=== PATIENT | female | born 1985 | race Caucasian/White ===

== ENCOUNTER 2018-07-19 09:29 | Inpatient (IN) | payer MEDICAID ==
[2018-07-19] VITALS (8 sets, daily range): BP systolic 103–143; BP diastolic 57–90; Ht 157.5 cm; Wt 83.9 kg
[~2018-07-19] VITALS: Ht 157.5 cm; Wt 83.9 kg
--- NOTE | ~2018-07-19 | DS ---
PATIENT:SUZIE PLATT :87 MEDICAL RECORD: [id number] DISCHARGE SUMMARY ADMISSION DATE: 07/19/18 DISCHARGE DATE: 07/21/18 ADMISSION DATE: 07/19/2018 DATE OF ADMISSION: 07/21/2018 ADMISSION DIAGNOSES: 1. at term. 2. History of prior section. 3. Unwanted fertility. DISCHARGE DIAGNOSES: 1. Mother delivered at term. 2. History of section. 3. Unwanted fertility. PROCEDURES PERFORMED: 1. Repeat low transverse section. 2. Bilateral tubal ligation using a [place] technique. ATTENDING: Dr. Valerio HISTORY OF PRESENT ILLNESS: See the H&P in the chart. SUMMARY OF HOSPITALIZATION: The patient was admitted to the hospital and underwent a repeat section with tubal ligation without incident. At the time of discharge, she was tolerating regular diet and has adequate pain control on Percocet and Toradol. DISCHARGE MEDICATIONS: Will include 5 mg Percocet 1-2 every 4-6 hours, dispensing 25. Motrin will be 800 mg, will also be prescribed to be taken every 8 hours for 2 days, then every 8 hours p.r.n. for [id number] pain. Standard discharge precautions have been reviewed with the patient. precautions have been reviewed and she will follow up in 2 weeks at [facility]. TRANSINT:[id number] Voice Confirmation ID: [id number] DOCUMENT ID: [id number] JORDAN VALERIO MD at 0830 CC: [id number] DICTATION DATE: 07/21/18 0650 PEANUT FARMER: 07/21/182055 DIS IN 07/21/18 [id number] [place] [address]
--- NOTE | ~2018-07-19 | OP ---
PATIENT NAME: SUZIE PLATT MEDICAL RECORD: [id number] :87 LOCATION:[facility].[id number] ADMISSION DATE:07/19/18 SURGEON: JORDAN VALERIO MD DATE OF OPERATION: 07/19/2018 PREOPERATIVE DIAGNOSES: 1. at term. 2. History of prior section. 3. Unwanted fertility. POSTOPERATIVE DIAGNOSES: 1. Mother delivered at term. 2. History of prior section. 3. Unwanted fertility. PROCEDURES: 1. Repeat low transverse section. 2. tubal ligation using a [place] technique. SURGEON: Jordan Valerio MD ANESTHESIOLOGIST: Dr. Leblanc. ANESTHETIC: Spinal. FINDINGS: Viable male infant, vertex presentation, Apgars 9 and 9, weight 7 pounds 6 ounces. Uterus, tubes, and ovaries are unremarkable. Minimal adhesive disease. SPECIMEN REMOVED: 1. Placenta. 2. Tubes. DISPOSITION: 1. Discarded. 2. Pathology. ESTIMATED BLOOD LOSS: 750 cc. FLUIDS: 1500 cc of lactated Ringer's. URINE OUTPUT: 350 cc of clear urine. COMPLICATIONS: None. DRAINS: Driscoll to gravity. INDICATIONS: The patient is a 33-year-old G4, para 3 with prior sections. The patient has unwanted fertility and has consented for repeat . Risks, benefits as well as possible issues with tubal have been discussed at length. Alternatives to tubal ligation have been discussed. DESCRIPTION OF PROCEDURE: After informed consent was assured, the patient was taken to the operating room where anesthetic is obtained. The patient is now placed in a leftward lateral tilt and prepped and draped. Incision was made at OPERATIVE REPORT [id number] SUZIE PLATT the old scar, carried down to the underlying layer of the fascia, which was opened in the midline and extended laterally. Rectus bellies were dissected free, superiorly and inferiorly. Peritoneum is identified and entered sharply. The peritoneal opening was extended with visualization of the bladder. DeLee all-purpose retractor was inserted and bladder flap developed. Bladder blade was now reinserted and low transverse hysterotomy was performed and with extension of the incision by bandage scissors. 's was delivered onto the abdomen atraumatically. Noted was a nuchal cord times 1, easily reduced. Infant has cords doubly clamped and cut and the infant was passed to the attendant from the nursery. Cord blood sample was now obtained and the placenta delivered via Crede maneuver. Uterus was not exteriorized, cleared of all clot and debris and closed in a running locked fashion with chromic. A small extension on the left side, it is now repaired with chromic stitch. After the chromic stitch is secured, the uterus is deflected forward and right tube identified and elevated. The window was developed in the antimesenteric portion and through this window 2 ligatures were placed and secured proximally and distally and the intervening segment of tube excised with Metzenbaum scissors. This was repeated on the contralateral side. Again, a segment of tube removed. All ostia sites were inspected and cauterized for hemostasis. The uterus was returned to the abdomen and the stumps inspected and found to be hemostatic. Inspection of the lower hysterotomy site reveals adequate hemostasis. The pelvis is now floated in sterile water and visualized without bleeding noted. The irrigant was removed and the peritoneum was reapproximated in the midline with a loose chromic stitch. Fascia was now closed with looped PDS. Subcutaneous tissues were irrigated, bleeding vessels cauterized, and the skin reapproximated with a subcuticular stitch. Sterile dressing is applied. Sponge, lap, and needle counts correct times 2. TRANSINT:[id number] Voice Confirmation ID: [id number] DOCUMENT ID: [id number] JORDAN VALERIO MD at 0649 CC: [id number] DICTATION DATE: 07/19/18 1234 ECONOMICS FACULTY MEMBER: 07/19/18 1353 ADM IN [facility] [address] [place] [address]
[2018-07-19 10:21] LABS: HEMOGLOBIN 11.5 g/dL (12-16); MCH 31.3 pg (26.0-34.0); MCHC 33.8 g/dL (31.0-37.0); MCV 92.4 fL (80.0-100.0); MEAN PLATELET VOLUME 9.7 fL (7.4-10.4); RBC 3.68 10x6/uL (4.00-5.40); RDW 13.7 % (11.5-14.5); WBC 10.4 10x3/uL (4.8-10.8)
[2018-07-19 14:36] LABS: APPEARANCE CLEAR (CLEAR); BACTERIA FEW /hpf (NONE SEEN); BILIRUBIN NEGATIVE (NEGATIVE); COLOR YELLOW (YELLOW); EPITHELIAL CELLS 0-5 /hpf (0-5); GLUCOSE NEGATIVE (NEGATIVE); KETONE NEGATIVE (NEGATIVE); NITRITE NEGATIVE (NEGATIVE); PROTEIN NEGATIVE (NEGATIVE); RED CELLS - URINE 0-5 /hpf (0-5); UROBILINOGEN NORMAL (NORMAL); WHITE CELLS - URINE 0-5 /hpf (0-5)
[2018-07-20 05:01] LABS: BASOPHILS 0.2 % (0-2); EOSINOPHILS 1.2 % (0-7); HEMATOCRIT 29.8 % (36.0-48.0); HEMOGLOBIN 9.8 g/dL (12-16); IMMATURE GRANULOCYTES 0.3 % (0-5); LYMPHOCYTES 9.8 % (15-50); MCH 30.5 pg (26.0-34.0); MCHC 32.9 g/dL (31.0-37.0); MCV 92.8 fL (80.0-100.0); MEAN PLATELET VOLUME 9.9 fL (7.4-10.4); MONOCYTES 6.4 % (2-11); NEUTROPHILS 82.1 % (40-80); PLATELET COUNT 201 10x3/uL (130-400); RBC 3.21 10x6/uL (4.00-5.40); RDW 13.7 % (11.5-14.5)
[2018-07-20 07:28] LABS: RAPID PLASMA REAGIN Non Reactive (Non Reactive)
[2018-07-20 07:40] VITALS: BP 115/70
[2018-07-20 18:00] VITALS: BP 113/68
[2018-07-20 19:54] VITALS: BP 113/69
[2018-07-20 22:00] VITALS: BP 118/77
[2018-07-21 01:00] VITALS: BP 110/64
[2018-07-21 07:29] VITALS: BP 116/60
[2018-07-21] MEDS ORDERED: IBUPROFEN800 MG PO (09:14)
[2018-07-21] MEDS ORDERED: PERCOCET 5-3251 TAB PO (09:15)
== END 2018-07-21 12:14 | disposition home or self-care (01) | DRG 785 ==
LOC: D.LD 09:29 → D.SDCHOLD 10:00 → D.LD 13:15
PROVIDERS: Obstetrics & Gynecology
PROC: 10D00Z1 Extraction of Products of Conception, Low, Open Approach (ICD-10-PCS; principal; 2018-07-19 10:00)
PROC: 0UB70ZZ Excision of Bilateral Fallopian Tubes, Open Approach (ICD-10-PCS; 2018-07-19 10:00)
DX: O34.211 Maternal care for low transverse scar from previous cesarean delivery (principal); O99.824 Streptococcus B carrier state complicating childbirth; O69.81X0 Labor and delivery complicated by cord around neck, without compression, not applicable or unspecified; Z30.2 Encounter for sterilization; Z3A.39 39 weeks gestation of pregnancy; Z37.0 Single live birth